=== PATIENT | male | born 1985 | race Asian ===

== ENCOUNTER 2020-04-07 06:00 | Emergency (ER) | payer OTHER ==
[~2020-04-07] VITALS: Ht 162.6 cm; Wt 63.6 kg
[2020-04-07 06:34] VITALS: BP 152/75
== END 2020-04-07 06:35 | disposition home or self-care (01) ==
LOC: EEVIPCON 06:00 → EMS 06:00
DX: Z03.818 Encounter for observation for suspected exposure to other biological agents ruled out (principal)